=== PATIENT | male | born 1990 | race Two or more races ===

== ENCOUNTER 2017-10-04 00:05 | Emergency (ER) | payer SELFPAY ==
[~2017-10-04] VITALS: Ht 177.8 cm; Wt 90.1 kg
[2017-10-04 00:07] VITALS: BP 121/78
[2017-10-04] MEDS ORDERED: DIPH,PERTUSS(ACELL),TET VAC/PF 0.5 ML IM-VACC ONE ×2 (00:27→00:30)
[2017-10-04] MEDS ORDERED: LIDOCAINE-MPF 1%, 5ML ONE (00:27)
[2017-10-04] MEDS ORDERED: LIDOCAINE 2%, 20ML SQ ONE (00:30)
[2017-10-04] MEDS ORDERED: BACITRACIN ZINC OINT 500U/GM, 0.9 GM ONE (01:58)
== END 2017-10-04 02:26 | disposition home or self-care (01) ==
LOC: ED 02:15
DX: S61.213A Laceration without foreign body of left middle finger without damage to nail, initial encounter (principal); W23.0XXA Caught, crushed, jammed, or pinched between moving objects, initial encounter; Y93.89 Activity, other specified; Y99.8 Other external cause status; Y92.89 Other specified places as the place of occurrence of the external cause
CPT/HCPCS: 12041; 90471; 90715